=== PATIENT | female | born 1990 | race American Indian/Alaskan Native ===

== ENCOUNTER 2018-06-23 14:27 | Emergency (ER) | payer MEDICAID ==
[2018-06-23 14:35] VITALS: BMI 18.4
[2018-06-23] MEDS ORDERED: Lidocaine 1% Inj (20ml) IJ STA (14:45)
--- NOTE | 2018-06-23 14:50 | ED PDOC ---
Arrival/HPI - General Chief Complaint: Abnormal Skin Integrity Time Seen by Provider: 06/23/18 14:41 Historian: Patient - History of Present Illness Narrative History of Present Illness (Text): 06/23/18 14:47 A 28 year old female, with no significant past medical history, with no food/ drug allergies, presents to the emergency department complaining of right armpit painful bump for 3 days. Patient reports swelling started out as a tiny lesion and decided to come to the ER for evaluation after it began to grow over the past 2 days. Patient denies any fever, chills, numbness, tingling, difficulty moving upper extremities, or any other complaints at this time. Time/Duration: < week (3 days) Past Medical History - Provider Review Nursing Documentation Reviewed: Yes - Psychiatric Hx Substance Use: No Family/Social History - Physician Review Nursing Documentation Reviewed: Yes Family/Social History: No Known Family HX Smoking Status: Current Some Days Smoker Hx Alcohol Use: Yes Frequency of alcohol use: Socially Hx Substance Use: No Allergies/Home Meds Allergies/Adverse Reactions: Allergies egg Allergy (Verified 06/23/18 14:35) RASH Review of Systems - Review of Systems Constitutional: absent: Fatigue, Fevers Eyes: absent: Vision Changes ENT: absent: Hearing Changes Respiratory: absent: SOB, Cough Cardiovascular: absent: Chest Pain Gastrointestinal: absent: Abdominal Pain, Diarrhea, Nausea, Vomiting Skin: Skin Lesions (located to right armpit region.), Abscess (rt. armpit). absent: Pruritis, Laceration, Ulcer, Cellulitis Neurological: absent: Headache, Dizziness Psychiatric: absent: Anxiety, Depression, Suicidal Ideation Physical Exam Vital Signs Reviewed: Yes Vital Signs Temp Pulse Resp BP Pulse Ox 06/23/18 14:30 98.8 F 76 16 104/69 100 Temperature: Afebrile Blood Pressure: Normal Pulse: Regular Respiratory Rate: Normal Appearance: Positive for: Well-Appearing, Non-Toxic, Comfortable Pain Distress: Mild Mental Status: Positive for: Alert and Oriented X 3 - Systems Exam Head: Present: Atraumatic, Normocephalic Pupils: Present: PERRL Extroacular Muscles: Present: EOMI Conjunctiva: Present: Normal Mouth: Present: Moist Mucous Membranes Neck: Present: Normal Range of Motion Respiratory/Chest: Present: Clear to Auscultation, Good Air Exchange. No: Respiratory Distress, Accessory Muscle Use Cardiovascular: Present: Regular Rate and Rhythm, Normal S1, S2. No: Murmurs Abdomen: No: Tenderness, Distention, Peritoneal Signs Back: Present: Normal Inspection Upper Extremity: Present: Neurovascularly Intact, Other (Rt. armpit region: skin lesion measuring 3 cm x 2 cm and 1cm diameter visible and palpable fluctuant abscess, neurologically intact, skin intact) Lower Extremity: Present: Normal Inspection. No: Edema Neurological: Present: GCS=15, Speech Normal, Motor Func Grossly Intact, Gait Normal, Memory Normal Skin: Present: Warm, Dry, Normal Color. No: Rashes Psychiatric: Present: Alert, Oriented x 3, Normal Insight, Normal Concentration Medical Decision Making ED Course and Treatment: 06/23/18 14:50 Impression: 28 year old female with swollen skin lesion located under right armpit. Physical exam shows skin lesion measuring 3 cm x 2 cm visible and palpable fluctuant abscess; skin intact. Plan: -- Lidocaine 1% -- POC Urine Test -- I&D -- Reassess and disposition Progress Notes: Procedure: Incision & Drainage Performed by the emergency provider Indication: Abscess Location: rt. armpit Preparation: The area was prepped and draped in the usual sterile fashion and was cleansed with saline and betadine. Local infiltration of Lidocaine 1% without Epi 0.5cc was used for anesthesia. Procedure: The most fluctuant portion of the abscess was incised with a #11 scalpel. Approximately 2 mL of purulant abscess drained. The abscess was packed 1/4 iodofoam packing. A dressing was applied by the THA Martinez. Post-Procedure: On exam the abscess is notably less fluctuant. The patient tolerated the procedure well, and there were no complications, total procedure time 20 minutes Cultured: {NO} 06/23/18 15:54 -Urine hcg is negative. -Discharge home with keflex, bactrim ds, motrin, keep the dressing dry and clean for 2 days, wound and packing needs to be checked and changed in 2 days, follow up with your own pmd and general surgeon within 2 days, return to the ER for any new or worsening signs or symptoms. 06/23/18 16:13 - Medication Orders Current Medication Orders: Discontinued Medications Cephalexin Monohydrate (Keflex) 500 mg PO STAT STA PRN Reason: Protocol Stop: 06/23/18 15:56 Last Admin: 06/23/18 16:08 Dose: 500 mg Lidocaine HCl (Lidocaine 1% (20ml)) 1 ml IJ STAT STA Stop: 06/23/18 14:46 Last Admin: 06/23/18 16:09 Dose: 1 ml Oxycodone/Acetaminophen (Percocet 5/325 Mg Tab) 1 tab PO STAT STA Stop: 06/23/18 15:56 Last Admin: 06/23/18 16:08 Dose: 1 tab MAR Pain Assessment Document 06/23/18 16:08 EWO (Rec: 06/23/18 16:09 EWO [id number]) Pain Reassessment Is this a pain reassessment? No Sleep Is patient sleeping during reassessment? No Presence of Pain Presence of Pain Yes Pain Scale Used Pain Scale Used Numeric Location Left, Right or Bilateral Right Pain Location Body Site Arm Description Description Constant Intensity of Pain at present 6 Trimethoprim/Sulfamethoxazole (Bactrim Ds Tab) 1 tab PO STAT STA PRN Reason: Protocol Stop: 06/23/18 15:56 Last Admin: 06/23/18 16:08 Dose: 1 tab - PA / SUMO WRESTLER / Resident Statement MD/DO has reviewed & agrees with the documentation as recorded. - Scribe Statement Francisco Blackman Provider Scribe Attestation: All medical record entries made by the Scribe were at my direction and personally dictated by me. I have reviewed the chart and agree that the record accurately reflects my personal performance of the history, physical exam, medical decision making, and the department course for this patient. I have also personally directed, reviewed, and agree with the discharge instructions and disposition. Disposition/Present on Arrival - Present on Arrival Any Indicators Present on Arrival: No History of DVT/PE: No History of Uncontrolled Diabetes: No Urinary Catheter: No History of Decub. Ulcer: No History Surgical Site Infection Following: None - Disposition Have Diagnosis and Disposition been Completed?: Yes Diagnosis: Armpit abscess Disposition: HOME/ ROUTINE Disposition Time: 15:20 Patient Plan: Discharge Patient Problems: Current Active Problems Problem Status Onset Armpit abscess Acute Condition: IMPROVED Additional Instructions: -Discharge home with keflex, bactrim ds, motrin, keep the dressing dry and clean for 2 days, wound and packing needs to be checked and changed in 2 days, follow up with your own pmd and general surgeon within 2 days, return to the ER for any new or worsening signs or symptoms. Prescriptions: Cephalexin [cephalexin] 500 mg PO QID #40 cap Ibuprofen [Motrin Tab] 600 mg PO QID PRN #30 tab PRN Reason: Other Sulfamethoxazole/Trimethoprim [Bactrim Ds Tablet] 1 each PO BID #20 tablet Referrals: Quinn Walker MD [Staff Provider] - Follow up with primary [facility] [place] [Outside] - Follow up with primary Forms: [employer] ([place]), WORK NOTE
[2018-06-23] MEDS ORDERED: Oxycodone/Acetaminophen 5/325 mg Tab PO STA (15:55)
[2018-06-23] MEDS ORDERED: Tmp-Smz 800 mg-160 mg DS Tab PO STA (15:55)
[2018-06-23 16:19] VITALS: BP 132/79; PULSE 74; RESP 18; TEMP 98.6; O2SAT 98
== END 2018-06-23 16:19 | disposition home or self-care (01) ==
LOC: ED 14:27 → MERGE 14:27 → ED 16:19
DX: L02.411 Cutaneous abscess of right axilla (principal)

== ENCOUNTER 2018-06-25 12:03 | Emergency (ER) | payer MEDICAID ==
[2018-06-25 12:03] VITALS: BMI 18.4
[2018-06-25 12:41] VITALS: BP 110/64; PULSE 60; RESP 18; TEMP 98.4; O2SAT 100
--- NOTE | 2018-06-25 13:02 | ED PDOC ---
Arrival/HPI - General Time Seen by Provider: 06/25/18 12:59 Historian: Patient - History of Present Illness Narrative History of Present Illness (Text): 06/25/18 12:59 28yo female who present to ED for packing removal. Notes it was placed here 2days ago after I & D. Denies any other complaint. Past Medical History - Provider Review Nursing Documentation Reviewed: Yes - Psychiatric Hx Substance Use: No Family/Social History - Physician Review Nursing Documentation Reviewed: Yes Family/Social History: Unknown Family HX Smoking Status: Current Some Days Smoker Hx Alcohol Use: Yes Hx Substance Use: No Allergies/Home Meds Allergies/Adverse Reactions: Allergies egg Allergy (Verified 06/25/18 13:14) RASH Review of Systems - Physician Review All systems were reviewed & negative as marked: Yes - Review of Systems Constitutional: Normal Eyes: Normal ENT: Normal Respiratory: Normal Cardiovascular: Normal Gastrointestinal: Normal Genitourinary Female: Normal Musculoskeletal: Normal Skin: Other (Packin removal) Neurological: Normal Endocrine: Normal Hemo/Lymphatic: Normal Psychiatric: Normal Physical Exam Vital Signs Reviewed: Yes Vital Signs Temp Pulse Resp BP Pulse Ox 06/25/18 12:41 98.4 F 60 18 110/64 100 Temperature: Afebrile Blood Pressure: Normal Pulse: Regular Respiratory Rate: Normal Appearance: Positive for: Well-Appearing, Non-Toxic, Comfortable Pain Distress: None Mental Status: Positive for: Alert and Oriented X 3 - Systems Exam Head: Present: Atraumatic, Normocephalic Pupils: Present: PERRL Extroacular Muscles: Present: EOMI Conjunctiva: Present: Normal Mouth: Present: Moist Mucous Membranes Neck: Present: Normal Range of Motion Respiratory/Chest: Present: Clear to Auscultation, Good Air Exchange. No: Respiratory Distress, Accessory Muscle Use Cardiovascular: Present: Regular Rate and Rhythm, Normal S1, S2. No: Murmurs Abdomen: No: Tenderness, Distention, Peritoneal Signs Back: Present: Normal Inspection Upper Extremity: Present: Normal Inspection. No: Cyanosis, Edema Lower Extremity: Present: Normal Inspection. No: Edema Neurological: Present: GCS=15, CN II-XII Intact, Speech Normal Skin: Present: Warm, Dry, Normal Color, Other (Packing noted in place to right axillae). No: Rashes Psychiatric: Present: Alert, Oriented x 3, Normal Insight, Normal Concentration Medical Decision Making ED Course and Treatment: 06/25/18 20:52 PT presented for stated . Packing was removed and redressed. Pt advised to keep area clean . Referred to her PMD. Advised to finish her abx. Disposition/Present on Arrival - Present on Arrival Any Indicators Present on Arrival: No History of DVT/PE: No History of Uncontrolled Diabetes: No Urinary Catheter: No History Surgical Site Infection Following: None - Disposition Have Diagnosis and Disposition been Completed?: Yes Diagnosis: Abscess packing removal Disposition: HOME/ ROUTINE Disposition Time: 13:05 Patient Plan: Discharge Condition: STABLE Discharge Instructions (ExitCare): Wound Care (DC) Additional Instructions: Follow up with your doctor Keep area clean and dry Return to ED for any new or worsening symptoms Referrals: Shirley Siddiqui MD [Staff Provider] - Follow up with primary Forms: [employer] ([place]ayan)
== END 2018-06-25 13:59 | disposition home or self-care (01) ==
LOC: ED 12:03
DX: Z48.01 Encounter for change or removal of surgical wound dressing (principal)